=== PATIENT | male | born 1990 | race African-American/Black ===

== ENCOUNTER 2018-08-25 19:55 | Emergency (ER) | payer OTHER ==
[~2018-08-25] VITALS: Ht 180.3 cm; Wt 120.7 kg
[2018-08-25 19:58] VITALS: Ht 180.3 cm; Wt 120.7 kg
--- NOTE | 2018-08-25 22:00 | ERD ---
ER Documentation Chief Complaint Chief Complaint SWELLING OF BILAT ANKLES AND FEET X'S 2 WEEKS HPI This is a 27-year-old male patient who presents the emergency room with complaint of swelling of his bilateral ankles and feet x1 week. Patient states he just got out of long term 1 week ago and he has had swelling of his lower extremities ever since. Patient denies any prior history of this, denies any medical problems. Patient is on psychiatric medications for bipolar. Patient denies any other symptoms such as chest pain, shortness of breath, fevers, back pain, any other problems. Patient is alert and ambulatory, NAD. ROS All systems reviewed and are negative except as per history of present illness. Allergies Allergies: Coded Allergies: No Known Allergy (Unverified , 08/25/18) PMhx/Soc Medical and Surgical Hx: pt denies Medical Hx, pt denies Surgical Hx History of Surgery: No Anesthesia Reaction: No Hx Neurological Disorder: No Hx Respiratory Disorders: No Hx Cardiac Disorders: No Hx Psychiatric Problems: No Hx Miscellaneous Medical Probl: No Hx Alcohol Use: Yes (QUIT 02/2018) Hx Substance Use: Yes (MARIJUANA) Hx Tobacco Use: No Smoking Status: Never smoker FmHx Family History: No diabetes, No coronary disease, No other Physical Exam Vitals Vital Signs Date Temp Pulse Resp B/P (MAP) Pulse Ox O2 O2 Flow FiO2 Time Delivery Rate 08/25/18 98.3 97 18 150/82 96 19:58 (104) Physical Exam Const: No acute distress Head: Atraumatic Eyes: Normal Conjunctiva, PERRL, EOMI ENT: Normal External Ears, Nose and Mouth. Pharynx pink, moist, no petechiae, no lesions Neck: Full range of motion. No meningismus. Lymphadenopathy Resp: Clear to auscultation bilaterally, no Rales, no wheezing Cardio: Regular rate and rhythm, no murmurs Abd: Soft, non tender, non distended. Normal bowel sounds Skin: No petechiae or rashes Back: No midline or flank tenderness Ext: No cyanosis, no pitting edema Neur: Awake and alert, CNII-XII intact, steady gait, clear speech Psych: Normal Mood and Affect Result Diagram: 08/25/18220608/25/182206 Results 24 hrs Laboratory Tests Test 08/25/18 22:07 7/6/19 22:10 White Blood Count 7.9 10^3/ul Red Blood Count 4.74 10^6/ul Hemoglobin 14.4 g/dl Hematocrit 42.0 % Mean Corpuscular Volume 88.6 fl Mean Corpuscular Hemoglobin 30.4 pg Mean Corpuscular Hemoglobin Concent 34.3 g/dl Red Cell Distribution Width 13.2 % Platelet Count 281 10^3/UL Mean Platelet Volume 8.9 fl Immature Granulocytes % 0.600 % Neutrophils % 40.8 % Lymphocytes % 45.1 % Monocytes % 8.5 % Eosinophils % 4.6 % Basophils % 0.4 % Nucleated Red Blood Cells % 0.0 /100WBC Immature Granulocytes # 0.050 10^3/ul Neutrophils # 3.2 10^3/ul Lymphocytes # 3.6 10^3/ul Monocytes # 0.7 10^3/ul Eosinophils # 0.4 10^3/ul Basophils # 0.0 10^3/ul Nucleated Red Blood Cells # 0.0 10^3/ul Sodium Level 143 mmol/L Potassium Level 4.1 mmol/L Chloride Level 107 mmol/L Carbon Dioxide Level 26 mmol/L Anion Gap 10 Blood Urea Nitrogen 14 mg/dl Creatinine 0.92 mg/dl Est Glomerular Filtrat Rate mL/min > 60 mL/min Glucose Level 98 mg/dl Calcium Level 8.9 mg/dl Total Bilirubin 0.3 mg/dl Direct Bilirubin 0.00 mg/dl Indirect Bilirubin 0.3 mg/dl Aspartate Amino Transf (AST/SGOT) 33 IU/L Alanine Aminotransferase (ALT/SGPT) 41 IU/L Alkaline Phosphatase 55 IU/L Total Protein 8.2 g/dl Albumin 4.2 g/dl Globulin 4.00 g/dl Albumin/Globulin Ratio 1.05 Bedside Urine pH (LAB) 7.0 Bedside Urine Protein (LAB) Negative Bedside Urine Glucose (UA) Negative Bedside Urine Ketones (LAB) Negative Bedside Urine Blood Negative Bedside Urine Nitrite (LAB) Negative Bedside Urine Leukocyte Esterase (L Negative Procedures/MDM PROCEDURES/MDM LAB INTERPRETATION: No leukocytosis, no anemia, no nephropathy, no hyperglycemia, no transaminitis, no urine protein glucose or ketones. No urine nitrites or leukocyte Estrace. MDM: There is a 27-year-old male patient who arrives to the emergency room with complaint of swelling to his bilateral lower extremities over the last week. Incidentally this patient has also just been released from long term 1 week ago. Patient denies any changes in his medications or diet over the last week. Patient is wearing sandals, his feet are dirty and unkept. This patient is also rather tall and a generally large obese man. He does not have pitting edema to his lower extremities that would indicate fluid overload. There is no anasarca to his feet. Although subjectively the patient may feel like his feet are swelling, there is no observable evidence that he has swollen feet. I have a low suspicion for congestive heart failure as patient has never had this diagnosis in the past, clear lungs, no shortness of breath, no chest pain. I have low suspicion that this subjective edema may be due to kidney dysfunction as patient does not have a history of kidney problems, no back pain, no other symptoms. Most likely this edema is due to his recent lifestyle change getting out of long term, change in diet and activity compared to when he was in long term. He also states his girlfriend just had a baby today and has been spending more time with her of late. Patient has been reassured that his subjective edema is not a life-threatening or emergent condition. Patient has been instructed on reducing sodium in his diet, elevating his legs, and getting exercise. Patient was provided with lab results to take to his primary care doctor for further follow- up. DISPOSITION and PLAN: RX: None The patient has been discharge home to follow-up with community physician. Departure Diagnosis: Primary Impression: Edema Edema type: generalized Qualified Codes: R60.1 - Generalized edema Condition: Stable RENE GARCIA NP Aug 25, 2018 22:00
[2018-08-26 00:15] VITALS: BP 125/81; PULSE 75; RESP 18
== END 2018-08-26 00:57 | disposition home or self-care (01) ==
LOC: FTE 19:55
DX: R60.1 Generalized edema (principal)
CPT/HCPCS: 36415; 80053; 81003; 85025; Z7502; 99283